=== PATIENT | male | born 1995 | race Hispanic/Latino ===

== ENCOUNTER 2021-09-21 05:37 | Emergency (ER) | payer OTHER ==
[2021-09-21] MEDS ORDERED: Dextrose 5 %-0.45 % NaCl 1,000 ML ONE (06:27)
[2021-09-21 06:30] LABS: #Basophils 0.1 thou/uL (0.0-0.2); #Eosinphils 0.3 thou/uL (0.0-0.7); #Lymphocytes 2.5 thou/uL (1.20-3.40); #Monocytes 0.8 thou/uL (0.11-0.59); #Neutrophils 3.8 thou/uL (1.40-6.50); %Basophils 1.7 % (0.0-1.0); %Eosinophils 4.2 % (0.0-10.0); %Lymphocytes 33.4 % (21.0-51.0); %Neutrophils 50.7 % (42.0-75.0); Mean Corpuscular HGB CONC 32.2 g/dL (32.0-36.0); Mean Corpuscular Hemoglobin 30.6 pg (27.0-31.0); Mean Corpuscular Volume 95.1 fL (78.0-98.0); Mean Platelet Volume 7.4 fL (7.4-10.4); Platelet Count 347 thou/uL (130-400); RBC Distribution Width 11.7 % (11.5-14.5); Red Blood Cell (RBC) Count 3.92 mill/uL (4.70-6.10); White Blood Cell (WBC) Count 7.5 thou/uL (4.8-10.8)
[2021-09-21 06:41] LABS: INR-International Normal Ratio 1.1
[2021-09-21 06:42] LABS: PTT 32.6 sec (22.9-36.1)
[2021-09-21] MEDS ORDERED: Tranexamic Acid 1,000 MG/10 ML VIAL ONE (07:06)
[2021-09-21] MEDS ORDERED: Sodium Chloride 0.9% 100 ML ONE (07:13)
[2021-09-21] MEDS ORDERED: Oxymetazoline HCl 0.05% (30 ML BOT) ONE (07:59)
== END 2021-09-21 10:25 ==
LOC: NAV ERS 05:37
DX: R04.0 Epistaxis (principal)
CPT/HCPCS: 85025; 85610; 85730; 96365; J7042